=== PATIENT | female | born 1985 | race Caucasian/White ===

== ENCOUNTER 2019-08-07 09:10 | Emergency (ER) | payer BC, SELFPAY ==
--- NOTE | ~2019-08-07 | CT_ITS ---
EXAMINATION: CT abdomen pelvis wo con DATE: 08/07/2019 09:50 INDICATION: Right flank pain. TECHNIQUE: Computed tomography (CT) of the abdomen and pelvis was performed without intravenous contr ast. Automated exposure control and iterative reconstruction technique were employed. The dose-length product was 426.18 mGy-cm. COMPARISON: None. FINDINGS: The visualized portions of the lung bases demonstrate mild atelectasis in the right. There is a 4.0 cm groundglass opacity in right lower lobe with reversed halo sign. No pleural effusion. The heart size is normal. No pericardial effusion. The liver, gallbladder, spleen, pancreas, adrenal gla nds, and left kidney are normal. There are 4 stones in right kidney measuring up to 3 mm. There is mi ld right hydronephrosis. There is a 4 mm stone in proximal right ureter. There are no dilated loops o f bowel. The appendix is not visualized. There are no pathologically enlarged lymph nodes. There is n o free intraperitoneal fluid. There are benign bone islands in the proximal femora. IMPRESSION: 1. 4 mm stone in proximal right ureter with mild right hydronephrosis. 2. Small nonobstructing right kidney stones. 3. 4.0 cm groundglass opacity in right lung lower lobe, most likely organizing pneumonia. Reviewed, dictated and finalized at location A. RAL ARTS DEAN
--- NOTE | ~2019-08-07 | XR_ITS ---
EXAMINATION: XR abdomen/kub 1V DATE: 08/07/2019 09:52 INDICATION: Right flank pain. TECHNIQUE: A supine view of the abdomen was obtained. COMPARISON: CT abdomen and pelvis 08/07/2019 FINDINGS: There are no dilated loops of bowel. There are 4 stones in right kidney measuring up to 3 m m. There is a 4 mm stone in proximal right ureter. IMPRESSION: 1. Stones in right kidney and proximal right ureter. Reviewed, dictated and finalized at location A. PRINCIPAL
[2019-08-07 09:27] VITALS: BP 153/96; PULSE 90; RESP 19; TEMP 36.7; O2SAT 100
[2019-08-07 09:30] LABS: Basophils Percent Auto 0.3 % (0.2-1.2); Eosinophils Absolute Auto 0.1 K/mm3 (0-0.3); Eosinophils Percent Auto 0.4 % (0-4.4); Hematocrit 37.5 % (37.0-47.0); Hemoglobin 11.9 g/dL (12.0-15.0); Immature Granulocyte Absolute 0.06 K/mm3 (0.00-0.031); Immature Granulocyte Percent A 0.4 % (0-0.5); Lymphocytes Absolute Auto 1.11 K/mm3 (0.9-3.2); Lymphocytes Percent Auto 7.9 % (18.3-44.2); Mean Corpuscular HGB Conc 31.7 g/dl (32-36); Mean Corpuscular Volume 82.1 fl (80-100); Monocytes Absolute Auto 0.7 K/mm3 (0.1-0.6); Platelet Count Result 354 k/mm3 (150-375); Red Blood Count 4.57 M/mm3 (4.2-5.4); Red Cell Distribution Width 13.9 % (11.5-14.5)
[2019-08-07 09:38] LABS: Add Urine Microscopic? YES; Appearance Urine Cloudy (Clear); Bacteria Urine Trace /hpf; Bilirubin Urine Negative (Negative); Blood Urine 3+ (Negative); Color Urine Yellow (Yellow); Glucose Urine UA Negative (Negative); Ketones Urine Negative (Negative); Leukocyte Esterase Ur Trace LEU/UL (Negative); Mucus Urine Few /lpf; Nitrate Urine Negative (Negative); Protein Urine 2+ mg/dL (Negative); RBC Urine >75 /hpf (0-2); Squamous Epithelial Cell Urine Many /hpf (Few); Urobilinogen Urine Negative mg/dL (<2.0)
[2019-08-07 09:39] LABS: Specific Grav Ur 1.032 (1.001-1.035)
[2019-08-07] MEDS: ONDANSETRON INJ 4 MG/2 ML VIAL IV PUSH (09:39)
[2019-08-07] MEDS: FAMOTIDINE 20 MG/2 ML VIAL IV PUSH (09:39)
[2019-08-07 09:43] LABS: Blood Urea Nitrogen 14 mg/dL (7-17); Calcium 8.8 mg/dL (8.4-10.2); Carbon Dioxide 22 mmol/L (22-30); Chloride 102 mmol/L (98-107); Estimated Glomerular Filt Rate > 60; Glucose 107 mg/dL (65-105); Potassium 3.6 mmol/L (3.4-5.0); Sodium 139 mmol/L (137-145)
--- NOTE | 2019-08-07 09:55 | ED.BACK ---
HPI - Back Pain/Injury General Chief Complaint: Back Pain/Injury Stated Complaint: R flank pain Time Seen by Provider: 08/07/19 09:11 Source: patient Mode of arrival: ambulatory Limitations: no limitations History of Present Illness HPI Narrative: Patient is a 33-year-old female who woke up during the night with left flank pain with history of kidney stones noting aching pain to the left CVA region made worse with activity and movement with associated nausea took a hydrocodone with no improvement. Patient also notes she has had a minimally productive cough for the last 3 to 4 weeks with her cold symptoms improving but continuing to have cough and drainage Related Data Home Medications Medication Instructions Recorded Confirmed citalopram mg 08/07/19 Allergies Allergy/AdvReac Type Severity Reaction Status Date / Time No Known Allergies Allergy Unknown Verified 08/07/19 09:29 Review of Systems Review of Systems: All systems reviewed & are unremarkable except as noted in HPI and below PMFSH Past Medical History Medical History (Updated 08/07/19 @ 11:04 by Ulisses Tanner PA-C) Urolithiasis Social History Social History (Updated 08/07/19 @ 09:56 by Ulisses Tanner PA-C) Smoking status: Never smoker Gender identity (if verbalized by the patient): Female Exam Narrative: Exam Narrative: GENERAL: Well-appearing, well-nourished, and in no acute distress. HEAD: Normocephalic, atraumatic. EYES: PERRLA and EOMI. ENT: Nares clear, no rhinorrhea or epistaxis. Mucous membranes moist. CHEST: Clear to auscultation. No respiratory distress. No wheezes rales or rhonchi HEART: Regular rate and rhythm. No murmur heard. Normal peripheral pulses. ABDOMEN: Soft, nontender, nondistended EXTREMITIES: Normal range of motion. No edema. SKIN: Warm, dry, no rash. NEURO: No focal deficits. Alert and oriented x3. PSYCH: Normal mood and affect. Course Course Emergency Course: Patient in the room in no distress aware of case findings treatment plan and diagnosis agreeing to follow-up as directed Consultations Consultation #1: Spoke with Dr. Noyola who recommends that the patient can be followed in clinic given her current pain status and findings Vital Signs Vital signs: Vital Signs Temperature 98.1 F 08/07/19 09:27 Pulse Rate 90 08/07/19 09:27 Respiratory Rate 19 08/07/19 09:27 Blood Pressure 153/96 H 08/07/19 09:27 Pulse Oximetry 100 08/07/19 09:27 Temperature 98.1 F 08/07/19 09:27 Pulse Rate 75 08/07/19 10:59 Respiratory Rate 19 08/07/19 10:59 Blood Pressure 125/80 08/07/19 10:59 Pulse Oximetry 100 08/07/19 10:59 MDM - Back Pain/Injury MDM Narrative Medical decision making narrative: Patient with urolithiasis and potential pneumonia will be treated for both afebrile nontoxic-appearing no distress felt appropriate for outpatient reevaluation agreeing to follow-up as directed or to return if symptoms worsen and was provided with reasons to return. Patient provided with urology follow-up. Lab Data Result diagrams: 08/07/19 09:24 08/07/19 09:24 Labs: Lab Results 08/07/19 08/07/19 08/07/19 Range/Units 09:24 09:24 09:24 WBC 14.0 H (4.5-10.0) K/mm3 RBC 4.57 (4.2-5.4) M/mm3 Hgb 11.9 L (12.0-15.0) g/dL Hct 37.5 (37.0-47.0) % MCV 82.1 (80-100) fl MCH 26.0 (26-34) pg MCHC 31.7 L (32-36) g/dl RDW 13.9 (11.5-14.5) % Plt Count 354 (150-375) k/mm3 MPV 11.0 H (7.4-10.4) fl Immature Gran % (Auto) 0.4 (0-0.5) % Neut % (Auto) 86.0 H (45.5-73.1) % Lymph % (Auto) 7.9 L (18.3-44.2) % [place] % (Auto) 5.0 (2.6-8.5) % Eos % (Auto) 0.4 (0-4.4) % Baso % (Auto) 0.3 (0.2-1.2) % Lymph # (Auto) 1.11 (0.9-3.2) K/mm3 [place] # (Auto) 0.7 H (0.1-0.6) K/mm3 Eos # (Auto) 0.1 (0-0.3) K/mm3 Baso # (Auto) 0.0 (0.0-0.1) K/mm3 Abs Immat Gran (auto) 0.06 H (0.00-0.031) K
[2019-08-07 10:59] VITALS: BP 125/80; PULSE 75; RESP 19; O2SAT 100
[2019-08-07] MEDS: LACTATED RINGERS 1,000 ML 999 ML IV CONT (11:21)
== END 2019-08-07 12:04 | disposition home or self-care (01) ==
PROVIDERS: Emergency Medicine Emergency Medical Services; Emergency Provider Emergency Medicine; PCP Family Medicine
DX: N13.2 Hydronephrosis with renal and ureteral calculous obstruction (principal); J18.9 Pneumonia, unspecified organism; Z87.442 Personal history of urinary calculi
CPT/HCPCS: 36415; 74018; 74176; 80048; 81001; 81025; 85025; 87086; 96361; 96374; 96375; 99284; J0131; J2405; J7120

== ENCOUNTER → 2019-08-10 09:57 | Outpatient (CLI) | payer BC, SELFPAY ==
--- NOTE | ~2019-08-10 | XR_ITS ---
EXAMINATION: XR abdomen/kub 1V INDICATION: Right ureteral stone TECHNIQUE: Supine views of the abdomen were obtained on 2 radiographs. COMPARISON: 08/07/2019 FINDINGS: A 4 mm stone projects in the expected location of the right ureter at the level of the righ t L3 transverse process, slightly distally compared to the prior examination. Right kidney stones jeannie suring up to 3 mm are seen. The bowel gas pattern is normal. IMPRESSION: 1. 4 mm right ureteral stone with slight distal migration since the comparison. 2. Right nephrolithiasis. Reviewed, dictated and finalized at location A. GER STRATEGIC DEVELOPMENT
== END ==
PROVIDERS: PCP Family Medicine; Visit Provider Urology
DX: N20.1 Calculus of ureter (principal); N20.0 Calculus of kidney
CPT/HCPCS: 74018

== ENCOUNTER → 2019-08-25 11:35 | Outpatient (CLI) | payer BC, SELFPAY ==
--- NOTE | ~2019-08-25 | XR_ITS ---
EXAMINATION: XR abdomen/kub 1V INDICATION: Right ureteral stone TECHNIQUE: Supine views of the abdomen were obtained on 2 radiographs. COMPARISON: 08/10/2019 FINDINGS: The previously described 4 mm stone in the right ureter is no longer identified. No definit e stone fragments are seen in the ureter or within the urinary bladder. Previously described right ne phrolithiasis is also not definitely present. The bowel gas pattern is normal. IMPRESSION: 1. Findings consistent with interval lithotripsy without stone fragments identified. Reviewed, dictated and finalized at location A. IMPRESSION: 1. Findings consistent with interval lithotripsy without stone fragments identi fied.
== END ==
PROVIDERS: PCP Family Medicine; Visit Provider Urology
DX: N20.1 Calculus of ureter (principal)
CPT/HCPCS: 74018

== ENCOUNTER → 2020-04-05 11:49 | Outpatient (CLI) | payer BC, SELFPAY ==
--- NOTE | ~2020-04-05 | US_ITS ---
EXAMINATION: US thyroid EXAM DATE: 04/05/2020 12:05 INDICATION: Nontoxic goiter. Lisbet's. TECHNIQUE: Multiple grayscale and Doppler images of the thyroid were obtained (by a technologist who performed the scan) and subsequently reviewed. Individual nodules and recommendations may be reporte d in accordance with TI-RADS system as designated by the 2017 ACR White Paper TI-RADS committee. The re is no prior study for comparison. FINDINGS: The right thyroid lobe measures 3.9 x 1.2 x 1.3 cm, the left measuring 3.4 x 1.1 x 1.0 cm. Size withi n normal limits. There is mildly heterogeneous thyroid echogenicity with expected amount of vasculari ty. No focal nodules identified. IMPRESSION: Unremarkable thyroid ultrasound exam. Reviewed, dictated and finalized at location A.
== END ==
PROVIDERS: Visit Provider Internal Medicine Endocrinology, Diabetes & Metabolism
DX: E06.9 Thyroiditis, unspecified (principal); E04.9 Nontoxic goiter, unspecified
CPT/HCPCS: 76536

== ENCOUNTER 2020-12-05 08:34 | Emergency (ER) | payer BC, SELFPAY ==
--- NOTE | ~2020-12-05 | XR_ITS ---
EXAMINATION: XR ankle RT min 3V INDICATION: Right ankle pain, initial encounter TECHNIQUE: Four views of the right ankle are obtained. COMPARISON: None available FINDINGS: There appears to be a subtle, nondisplaced avulsion at the tip of the lateral malleolus. Th ere is adjacent soft tissue swelling of ankle. Bone alignment is normal. No additional acute osseous findings are suspected. IMPRESSION: 1. Likely nondisplaced avulsion fracture at the tip of the lateral malleolus. Reviewed, dictated and finalized at location A.
--- NOTE | ~2020-12-05 | XR_ITS ---
EXAMINATION: XR foot RT min 3V DATE: 12/05/2020 09:04 INDICATION: Right foot pain TECHNIQUE: Dorsoplantar, lateral, and 2 oblique views of the right foot were obtained. COMPARISON: None. FINDINGS: There is no fracture, dislocation, or subluxation. The bones, soft tissues, and joint space s are normal. IMPRESSION: 1. No acute osseous abnormality. Reviewed, dictated and finalized at location A.
[2020-12-05 08:44] VITALS: BP 128/85; PULSE 98; RESP 17; TEMP 36.6; O2SAT 98
--- NOTE | 2020-12-05 09:58 | ED.GENADULT ---
HPI - General Adult General Chief complaint: Extremity Injury, Lower Stated complaint: right foot injury Time Seen by Provider: 12/05/20 09:14 Source: patient Mode of arrival: ambulatory Limitations: no limitations History of Present Illness HPI narrative: This is a 35 year old female that presents to the ER for right foot and ankle pain since yesterday. Reports she missed a step and twisted her right ankle. Reports that she has had pain on the lateral side of the foot and ankle. Worse with movement and weightbearing and relieved with rest. Denies decreased range of motion or numbness. Related Data Home Medications Medication Instructions Recorded Confirmed citalopram mg 08/07/19 Allergies Allergy/AdvReac Type Severity Reaction Status Date / Time No Known Allergies Allergy Unknown Verified 08/07/19 09:29 Review of Systems Review of Systems: Narrative: CONSTITUTIONAL: Denies fever MUSCULOSKELETAL: Reports joint pain, and myalgia. NEUROLOGIC: Denies numbness All systems reviewed & are unremarkable except as noted in HPI and below PMFSH Past Medical History Medical History (Updated 12/05/20 @ 11:02 by Jeanne Geiger PA-C) History of Lisbet thyroiditis Urolithiasis Surgical History Surgical History (Updated 12/05/20 @ 10:00 by Jeanne Geiger PA-C) History of lithotripsy Social History Social History (Updated 08/07/19 @ 09:56 by Ulisses Tanner PA-C) Smoking status: Never smoker Gender identity (if verbalized by the patient): Female Exam Narrative: Exam Narrative: GENERAL: Well-appearing, well-nourished, and in no acute distress. HEAD: Normocephalic, atraumatic. EYES: EOMI. EXTREMITIES: Normal range of motion. Mild edema about the right lateral malleoli, tender to palpation. Normal DP pulses. Normal sensation SKIN: Warm, dry, no rash. NEURO: No focal deficits. Alert and oriented x3. PSYCH: Normal mood and affect Course Vital Signs Vital signs: Vital Signs Temperature 97.9 F 12/05/20 08:44 Pulse Rate 98 12/05/20 08:44 Respiratory Rate 17 12/05/20 08:44 Blood Pressure 128/85 12/05/20 08:44 Pulse Oximetry 98 12/05/20 08:44 Temperature 97.9 F 12/05/20 08:44 Pulse Rate 97 12/05/20 10:45 Respiratory Rate 16 12/05/20 10:45 Blood Pressure 127/81 12/05/20 10:45 Pulse Oximetry 100 12/05/20 10:45 Procedures Orthopedic Splinting/Casting Injury #1: Splinting/Casting Date: 12/05/20 Side: right Lower Extremity Injury Location: ankle Lower Extremity Immobilizer: posterior splint Splint: customized in ED OCL: posterior Pre-Procedure Neuro Vascular Exam: normal Post-Procedure Neuro Vascular Exam: normal Other Orthopedic Equipment: crutches Medical Decision Making MDM Narrative Medical decision making narrative: Patient presents to the emergency department for right ankle and foot pain after an injury yesterday. Patient is neurovascularly intact. Right foot and ankle x-rays obtained. Right ankle x-ray shows nondisplaced avulsion fracture at the tip of the lateral malleolus. Patient placed in short leg posterior and given crutches. Will be given orthopedics for follow-up. She was given warnings to return to the ER Vital Signs Vital Signs: Vital Signs Temperature 97.9 F 12/05/20 08:44 Pulse Rate 98 12/05/20 08:44 Respiratory Rate 17 12/05/20 08:44 Blood Pressure 128/85 12/05/20 08:44 Pulse Oximetry 98 12/05/20 08:44 Temperature 97.9 F 12/05/20 08:44 Pulse Rate 97 12/05/20 10:45 Respiratory Rate 16 12/05/20 10:45 Blood Pressure 127/81 12/05/20 10:45 Pulse Oximetry 100 12/05/20 10:45 Imaging Data Radiologist's impression: ITS Impressions Foot X-Ray 12/05/20 09:04 IMPRESSION: 1. No acute osseous abnormality. Ankle X-Ray 12/05/20 10:08 IMPRESSION: 1. Likely nondisplaced avulsion fracture at the tip of the lateral malleolus.
[2020-12-05 10:45] VITALS: BP 127/81; PULSE 97; RESP 16; O2SAT 100
== END 2020-12-05 11:17 | disposition home or self-care (01) ==
PROVIDERS: Emergency Provider Emergency Medicine; PCP Family Medicine
DX: S82.64XA Nondisplaced fracture of lateral malleolus of right fibula, initial encounter for closed fracture (principal); E06.3 Autoimmune thyroiditis; Z87.442 Personal history of urinary calculi; X50.9XXA Other and unspecified overexertion or strenuous movements or postures, initial encounter
CPT/HCPCS: 29515; 73610; 73630; 99284

== ENCOUNTER → 2023-07-22 14:34 | Outpatient (CLI) | payer BC, SELFPAY ==
--- NOTE | ~2023-07-22 | XR_ITS ---
XR sacroiliac joints min 3V DATE: 07/22/2023 15:25 INDICATION: Rheumatoid arthritis TECHNIQUE: AP and bilateral oblique views COMPARISON: None FINDINGS: The sacroiliac joints are intact without evidence of erosive change or ankylosis. No sacral fracture or bone destruction is detected. Hip joint spaces appear symmetric and well preserved. The pubic symphysis is intact. IMPRESSION: Negative examination Reviewed, dictated and finalized at Location A. Reviewed, dictated and finalized at location B. ITECTURE MANAGER IMPRESSION: Negative examination
--- NOTE | ~2023-07-22 | XR_ITS ---
EXAMINATION: XR hand BI arthritis min 3V DATE: 07/22/2023 15:25 INDICATION: Rheumatoid arthritis without rheumatoid factor. TECHNIQUE: 4 views of right hand and 4 views of left hand on a total of 7 radiographs were obtained. COMPARISON: None. FINDINGS: RIGHT HAND: Bone alignment is normal. No fracture. Joint spaces are normal. LEFT HAND: Bone alignment is normal. No fracture. Joint spaces are normal. IMPRESSION: 1. No arthritis. Reviewed, dictated and finalized at location A. RMELON HARVESTING SUPERVISOR IMPRESSION: 1. No arthritis.
--- NOTE | ~2023-07-22 | XR_ITS ---
EXAMINATION: XR foot RT standing 2V DATE: 07/22/2023 15:25 INDICATION: Rheumatoid arthritis without rheumatoid factor. TECHNIQUE: 2 views of right foot standing were obtained. COMPARISON: Right foot radiograph 12/05/2020 FINDINGS: Bone alignment is normal. No fracture. There is mild osteoarthritis of first metatarsophala ngeal joint. There is an enthesophyte at plantar aspect of calcaneal tuberosity. IMPRESSION: 1. Mild osteoarthritis of first metatarsophalangeal joint. Reviewed, dictated and finalized at location A. TS MARKETER
--- NOTE | ~2023-07-22 | XR_ITS ---
EXAMINATION: XR foot LT standing 2V DATE: 07/22/2023 15:25 INDICATION: Rheumatoid arthritis without rheumatoid factor. TECHNIQUE: 2 views of left foot standing were obtained. COMPARISON: None. FINDINGS: Bone alignment is normal. No fracture. There is mild osteoarthritis of first metatarsophala ngeal joint. There is an enthesophyte at plantar aspect of calcaneal tuberosity. IMPRESSION: 1. Mild osteoarthritis of first metatarsophalangeal joint. Reviewed, dictated and finalized at location A. LEX MANAGER
--- NOTE | ~2023-07-22 | XR_ITS ---
XR lumbar spine 2-3V DATE: 07/22/2023 15:25 INDICATION: Rheumatoid arthritis TECHNIQUE: AP, lateral, coned lateral lumbosacral views COMPARISON: None FINDINGS: Mild thoracolumbar dextroscoliosis. No fracture or bone destruction is evident. Included lower thoracic and lumbar pedicles are intact. Mild degenerative disc disease at L1-2, L2-3 and L3-4 and to a lesser extent L4-5. No fracture or bon e destruction or spondylolisthesis. The sacroiliac joints are intact. IMPRESSION: Mild multilevel degenerative disc disease Reviewed, dictated and finalized at location B. UIT FACTORY WORKER
== END ==
PROVIDERS: PCP Internal Medicine; Visit Provider Internal Medicine
DX: M06.09 Rheumatoid arthritis without rheumatoid factor, multiple sites (principal); M19.072 Primary osteoarthritis, left ankle and foot; M19.071 Primary osteoarthritis, right ankle and foot; M51.36 Other intervertebral disc degeneration, lumbar region
CPT/HCPCS: 72100; 72202; 73130; 73620

== ENCOUNTER 2024-09-23 09:13 | Outpatient (CLI) | payer BC, SELFPAY ==
--- NOTE | ~2024-09-23 | MMUS_ITS ---
EXAMINATION: MM diagnostic silverio BI w donny, US breast BI complete HISTORY: Palpable breast lumps TECHNIQUE: Additional 3-D tomosynthesis images of the breasts were performed and synthetic 2-D images were generated. CAD analysis was submitted and interpreted. High resolution bilateral complete breas t ultrasound was performed. COMPARISON: None BREAST PARENCHYMAL COMPOSITION: Not dense: There are scattered areas of fibroglandular density. FINDINGS: MAMMOGRAPHIC FINDINGS: There are no suspicious masses, calcifications or architectural distortion in either breast. There ar e clustered bilateral axillary lymph nodes which are symmetric in appearance. ULTRASOUND: Complete US of all 4 quadrants of the breast/s and retroareolar region was reviewed. Right breast: At 9:00, 10 cm from the nipple there is a intramammary lymph node measuring 6 mm. No hogue spicious masses in the right breast to suggest malignancy. Left breast: There are normal appearing bilateral axillary lymph nodes. No suspicious masses in the l eft breast to suggest malignancy. IMPRESSION: 1. No evidence for malignancy in either breast. 2. . Routine yearly screening mammogram and regular clinical breast examination are recommended. BI-RADS Category 2: Benign finding(s). Reviewed, dictated and finalized at location A. IMPRESSION: 1. No evidence for malignancy in either breast. 2. . Routine yearly screening mammogram and regular clinical breast examination are recommended. BI-RADS Category 2: Benign finding(s).
== END 2024-09-23 09:14 | disposition home or self-care (01) ==
LOC: MICIMG 09:13
PROVIDERS: PCP Nurse Practitioner Adult Health; Visit Provider Nurse Practitioner
DX: R92.8 Other abnormal and inconclusive findings on diagnostic imaging of breast (principal); N63.0 Unspecified lump in unspecified breast
CPT/HCPCS: 76641; 77062; 77066; G0279